=== PATIENT | male | born 1975 | race Two or more races ===

== ENCOUNTER 2017-12-31 14:02 | Emergency (ER) | payer OTHER ==
[~2017-12-31] VITALS: Ht 165.1 cm; Wt 81.6 kg
[~2017-12-31 14:02] MED LIST: CIPR-217 PO; CLIN1CAP4 PO; NOR10T PO
[2017-12-31 15:17] VITALS: BP 122/80
[2017-12-31] MEDS ORDERED: LIDOCAINE 1% (LOCAL ANESTH.) PF 5ml SDV IJ ONE (15:45)
[2017-12-31] MEDS ORDERED: cefTRIAXone SOD 1,000 MG VL IM ONE (16:00)
== END 2017-12-31 16:37 | disposition home or self-care (01) ==
LOC: ER 14:02
DX: L02.512 Cutaneous abscess of left hand (principal); F17.210 Nicotine dependence, cigarettes, uncomplicated; L72.0 Epidermal cyst; Z88.0 Allergy status to penicillin; Z79.899 Other long term (current) drug therapy
CPT/HCPCS: 26010; 96372; 99283; J0696; 10060; 20610

== ENCOUNTER 2018-01-02 12:27 | Emergency (ER) | payer OTHER ==
[~2018-01-02] VITALS: Ht 165.1 cm; Wt 81.6 kg
[2018-01-02 13:25] VITALS: BP 127/81
== END 2018-01-02 14:10 | disposition home or self-care (01) ==
LOC: ER 12:27
DX: M79.641 Pain in right hand (principal); F17.210 Nicotine dependence, cigarettes, uncomplicated; Z48.00 Encounter for change or removal of nonsurgical wound dressing; Z88.0 Allergy status to penicillin; Z79.899 Other long term (current) drug therapy